=== PATIENT | male | born 1985 | race Two or more races ===

== ENCOUNTER 2017-11-06 12:02 | Emergency (ER) | payer MEDICAID ==
[~2017-11-06] VITALS: Ht 175.3 cm; Wt 113.4 kg
[2017-11-06 12:17] VITALS: BP 120/72
== END 2017-11-06 12:37 | disposition home or self-care (01) ==
LOC: ER 12:05
DX: J06.9 Acute upper respiratory infection, unspecified (principal)
CPT/HCPCS: 99283; A4606; Z7610